=== PATIENT | female | born 1985 | race Caucasian/White ===

== ENCOUNTER 2016-10-30 14:16 | Emergency (ER) | payer SELFPAY ==
[~2016-10-30] VITALS: Ht 154.9 cm; Wt 50.0 kg
[2016-10-30 14:19] VITALS: BP 137/90; PULSE 117; RESP 19; TEMP 98.9; O2SAT 99
[2016-10-30 14:40] VITALS: PULSE 105; RESP 18; TEMP 98.5; O2SAT 99
[2016-10-30] MEDS ORDERED: LIDOCAINE 1%/EPINEPHrine 1:100,000 SOLN 30 ML VIAL ONE (14:53)
--- NOTE | 2016-10-30 14:59 | PD ---
HPI Chief Complaint: Skin Problem Time Seen by Provider: 14:45 Travel History International Travel<30 days: No Contact w/Intl Traveler<30days: No Traveled to known affect area: No History of Present Illness HPI The patient was seen and examined in the presence of the nurse. She complains of infection in her left wrist. Patient is not a drug abuser and injecting cocaine there a few days ago and missed the vein. Denies drainage or fever. She is not having shortness of breath or chest pain. Symptoms severity is moderate. No alleviating factors. Duration 3 days PFSH Past Medical History Asthma: Yes Bipolar Disorder: Yes Depression: Yes Diminished Hearing: No Hepatitis: Yes (HEP C ) Tetanus Vaccination: < 5 Years ?: Not Past Surgical History Surgical History: No Previous Surgery Section: Yes Hysterectomy: Yes Social History Alcohol Use: No Tobacco Use: Yes Substance Use: Yes (IV DRUG USE) Allergies-Medications (Allergen,Severity, Reaction): Coded Allergies: No Known Allergies (Verified Allergy, Unknown, 10/30/16) Reported Meds & Prescriptions Reported Meds & Active Scripts Active Clindamycin (Clindamycin HCl) 150 Mg Cap 300 Mg PO Q8HR Bactrim DS (Sulfamethoxazole-Trimethoprim) 800-160 Mg Tab 1 Tab PO BID Review of Systems General / Constitutional: No: Fever Eyes: No: Visual changes HENT: No: Headaches Cardiovascular: No: Chest Pain or Discomfort Respiratory: No: Shortness of Breath Gastrointestinal: No: Abdominal Pain Genitourinary: No: Dysuria Musculoskeletal: Positive: Pain Skin: No Rash Neurologic: No: Weakness Psychiatric: Positive: Substance Abuse, No: Depression Endocrine: No: Polydipsia Hematologic/Lymphatic: No: Easy Bruising Physical Exam Narrative GENERAL: Well-nourished, well-developed patient in no apparent distress. SKIN: Focused skin assessment reveals no rash and nodules. Skin is Warm and dry. HEAD: Atraumatic. Normocephalic. EYES: Pupils equal and round. No scleral icterus. No injection or drainage. ENT: No nasal bleeding or discharge. Mucous membranes pink and moist. NECK: Trachea midline. No JVD. CARDIOVASCULAR: Regular rate and rhythm. No murmur appreciated. RESPIRATORY: No accessory muscle use. Clear to auscultation. Breath sounds equal bilaterally. GASTROINTESTINAL: Abdomen soft, non-tender, nondistended. Hepatic and splenic margins not palpable. MUSCULOSKELETAL: No obvious deformities. No clubbing. No cyanosis. No edema. Patient has an abscess on the volar aspect of her left wrist. Tender and fluctuant. No active drainage. No ascending lymphangitis or surrounding erythema. NEUROLOGICAL: Awake and alert. No obvious cranial nerve deficits. Motor grossly within normal limits. Normal speech. PSYCHIATRIC: Appropriate mood and affect; insight and judgment normal. Data Data Last Documented VS Vital Signs Date Time Temp Pulse Resp B/P (MAP) Pulse Ox O2 Delivery O2 Flow Rate FiO2 10/30/16 14:40 105 10/30/16 14:40 98.5 18 99 Room Air Orders Orders Lidocai-Epi 1%-1:100,000 Inj (Xylocaine- (10/30/16 15:00) Wound Culture And Gram Stain (10/30/16 14:51) Lidocai-Epi 1%-1:100,000 Inj (Xylocaine- (10/30/16 14:53) Lidocai-Epi 1%-1:100,000 Inj (Xylocaine- (10/30/16 15:15) MDM Medical Decision Making Medical Screen Exam Complete: Yes Emergency Medical Condition: Yes Medical Record Reviewed: Yes Differential Diagnosis Abscess, cellulitis, IV drug abuse Narrative Course I have reviewed the patient's electronic medical record. Patient gives verbal consent for incision and drainage EVELYN Light perform incision and drainage Specimen sent for wound culture and Gram stain Patient symptoms are limited to the local infection. No symptoms consistent with endocarditis. No chest symptoms. She is not febrile. I gave her 10 days of both Bactrim DS and clindamycin Recommend primary care follow-up and toward [facility] drug rehabilitation program Return if worse Diagnosis Primary Impression: Abscess of skin Qualified Codes: L02.414 - Cutaneous abscess of left upper limb Additional Impression: IV drug abuse Additional Instructions: The patient was advised to follow up with their physician and return if they worsen. Take antibiotics for 10 full days Use warm compresses to left wrist Recommending [facility] drug rehabilitation program Med/Other Pt SpecificInfo: Prescription(s) given Scripts Clindamycin (Clindamycin) 150 Mg Cap 300 MG PO Q8HR for Infection, #60 CAP 0 Refills Prov: Fidencio Williamson MD 10/30/16 Sulfamethoxazole-Trimethoprim (Bactrim DS) 800-160 Mg Tab 1 TAB PO BID for Infection, #20 TAB 0 Refills Prov: Fidencio Williamson MD 10/30/16 Disposition: 01 DISCHARGE HOME Condition: Stable Fidencio Williamson MD Oct 30, 2016 14:59
[2016-10-30] MEDS ORDERED: LIDOCAINE 1%/EPINEPHrine 1:100,000 SOLN 20 ML VIAL INFIL ONE (15:00)
[2016-10-30] MEDS ORDERED: LIDOCAINE 1%/EPINEPHrine 1:100,000 SOLN 30 ML VIAL INFIL ONE ×2 (15:15)
--- NOTE | 2016-10-30 15:33 | PD ---
Physical Exam Time Seen by Provider: 15:15 Data Data Last Documented VS Vital Signs Date Time Temp Pulse Resp B/P (MAP) Pulse Ox O2 Delivery O2 Flow Rate FiO2 10/30/16 14:40 105 10/30/16 14:40 98.5 18 99 Room Air Orders Orders Lidocai-Epi 1%-1:100,000 Inj (Xylocaine- (10/30/16 15:00) Wound Culture And Gram Stain (10/30/16 14:51) Lidocai-Epi 1%-1:100,000 Inj (Xylocaine- (10/30/16 14:53) Lidocai-Epi 1%-1:100,000 Inj (Xylocaine- (10/30/16 15:15) MDM Medical Record Reviewed: Yes Supervised Visit with YASIR: No Narrative Course This patient presents with an abscess to left wrist, she verbally consented to incision and drainage. Procedures Procedure Narrative INCISION AND DRAINAGE OF ABSCESS: The area was prepped and was sterilely draped. A subcutaneous wheal of 1% Xylocaine with a total number 5 mL was used to anesthetize the area. The area was properly anesthetized. A number 11 scalpel was used to make a 1 -cm incision across the area of the abscess. Cultures were obtained. The abscess was drained an irrigated with normal saline. Scripts No Active Prescriptions or Reported Meds Kuldeep Hermosillo Oct 30, 2016 15:33
[2016-10-30] MEDS ORDERED: CLIN1CAP5 PO (16:16)
[2016-10-30] MEDS ORDERED: BACT800T5 PO (16:16)
== END 2016-10-30 16:31 | disposition home or self-care (01) ==
LOC: NEPD 14:16
DX: L02.414 Cutaneous abscess of left upper limb (principal); B95.8 Unspecified staphylococcus as the cause of diseases classified elsewhere; F19.10 Other psychoactive substance abuse, uncomplicated; J45.909 Unspecified asthma, uncomplicated
CPT/HCPCS: 10060; 87070